=== PATIENT | female | born 1940 | race Caucasian/White ===

== ENCOUNTER → 2017-05-18 | Outpatient (CLI) | payer OTHER, MEDICARE ==
[~2017-05-18] MED LIST: ACET650T49 PO; ASPI325T39 PO; BIOF500C2; CARV12.52 PO; DIPH-416 PO; ERGO500011 PO; FERR1TAB13 PO; LOSA50TA6 PO; MULT-506 PO; OPTIRAY 320 IV PRN; POTA10CA28 PO; SIMV10TA2 PO; TRIA37.5 PO; ZINC1CAP PO
--- NOTE | 2017-05-18 10:48 | DIAGNOSTIC IMAGING REPORT ---
CT OF THE PELVIS WITH CONTRAST CLINICAL HISTORY: Left buttock nonhealing wound. COMPARISON STUDY: No previous studies for comparison. TECHNIQUE: Axial images of the pelvis were obtained following intravenous injection of 93 cc of Optiray 320 IV. Sagittal and coronal reconstructions were viewed. FINDINGS: The gallbladder is surgically absent. A 3.3 cm cyst arising from the lower pole of the right kidney is noted. Note is made of a lower ventral hernia which contains small and large bowel without resultant bowel obstruction. A moderate amount of stool is noted within visualized portions of the colon and rectum. No suspicious osseous lesions are present. There is subcutaneous fluid and enhancement within the medial fold of the left buttock with infiltration which extends through the external sphincter. No well-defined rim-enhancing fluid collection is identified to suggest an abscess. An underlying fistula would be difficult to exclude by CT but is not definitively identified. Incidental note is made of anterior right thigh collaterals. There is no pelvic lymphadenopathy. There is no CT evidence of osteomyelitis of the sacrum or coccyx. IMPRESSION: 1. Wound of the medial fold of the left buttock with minimal subcutaneous fluid, enhancement and infiltration which extends toward the external anal sphincter. This favors phlegmon with no well-defined rim enhancing fluid collection to suggest abscess. An underlying perianal fistula would be difficult to exclude by CT but is not definitively identified. 2. Small and large bowel containing lower ventral hernia without resultant bowel obstruction. Electronically signed by: Norman Marin M.D. 05/18/2017 10:46 AM Dictated Date/Time: 05/18/2017 10:35 AM
== END | disposition home or self-care (01) ==
LOC: C.CTS 09:52
PROVIDERS: ATTEND Emergency Medicine
DX: S31.829A Unspecified open wound of left buttock, initial encounter (principal); X58.XXXA Exposure to other specified factors, initial encounter; K43.9 Ventral hernia without obstruction or gangrene